=== PATIENT | male | born 1965 ===

== ENCOUNTER 2022-02-08 06:20 | Day surgery (SDC) | payer OTHER ==
[~2022-02-08] VITALS: Ht 170.2 cm; Wt 117.9 kg
[2022-02-08] MEDS ORDERED: NEURONTIN600 M1 PO (14:30)
[2022-02-08] MEDS ORDERED: POLY119PG PO (14:30)
[2022-02-08] MEDS ORDERED: ULTRACET PO (14:30)
== END 2022-02-08 18:00 | disposition home or self-care (01) ==
LOC: CIR.AMB 06:20
PROVIDERS: ATTEND Surgery
DX: K43.6 Other and unspecified ventral hernia with obstruction, without gangrene (principal); K43.9 Ventral hernia without obstruction or gangrene; Z86.16 Personal history of COVID-19; Z87.891 Personal history of nicotine dependence; E66.01 Morbid (severe) obesity due to excess calories; Z20.822 Contact with and (suspected) exposure to COVID-19